=== PATIENT | male | born 1970 | race Caucasian/White ===

== ENCOUNTER → 2018-03-04 06:50 | Outpatient (CLI) | payer OTHER, SELFPAY ==
--- NOTE | 2018-03-04 07:00 | RAD_ITS ---
STUDY: X-RAY - ORBITS REASON FOR EXAM: Male, 47 years old. This study is being performed as a clearance examination for exclusion of orbital metal, prior to the performance of an MRI examination. TECHNIQUE: view(s) of the orbits were obtained. COMPARISON: None. FINDINGS: There are tiny metallic densities project over the lateral upper margin of the right maxillary sinus and over the left orbital rim. RAD/Orbits for Foreign Body IMPRESSION: 2 small metallic densities are seen projecting over the right upper lateral margin of the maxilla and in the left orbital rim Electronically Signed: Augustin Pavon, at 7:41 EDT Tel , Service support ,
--- NOTE | 2018-03-04 07:22 | MRI_ITS ---
STUDY: MRI LUMBAR SPINE WITHOUT CONTRAST REASON FOR EXAM: Male, 47 years old. low back pain RADIATES DOWN L LEG X SEVERAL WEEKS. TECHNIQUE: Standardized fat and water weighted pulse sequences were obtained in the sagittal and axial planes. COMPARISON: None FINDINGS: T12-L1: There is moderate disc space narrowing and endplate spondylosis. There is no significant disc herniation, spinal canal or foramina stenosis. Normal lumbar lordosis. There is no substantial scoliosis. Normal conus medullaris that terminates at the T12 L1-2: There is minimal disc space narrowing and endplate spondylosis. There is a minimal disc bulge and facet arthropathy without significant central canal or foraminal stenosis. L2-3: There is mild disc space narrowing and endplate spondylosis. There is a mild disc bulge and facet atrophy with mild central canal and mild bilateral foraminal stenosis. L3-4: There is a moderate disc space narrowing and endplate spondylosis. There is a moderate disc bulge and facet arthropathy with moderate central canal stenosis. There is moderate bilateral foraminal stenosis. L4-5: There is moderate disc space narrowing and endplate spondylosis. There is a minimal disc bulge and facet arthropathy without significant central canal stenosis. There is mild bilateral foraminal stenosis. L5-S1: There is minimal disc space narrowing and endplate spondylosis. There is a small central protrusion without significant central canal or foraminal stenosis. Normal visualized sacral ala. Normal visualized paraspinous soft tissue structures. MRI/Spine Lumbar (Routine) IMPRESSION: L3/L4: Moderate central canal stenosis. Moderate bilateral foraminal stenosis. Electronically Signed: Logan Garcia MD at 14:34 EDT Tel , Service support ,
== END ==
PROVIDERS: Family Provider Family Medicine; PCP Family Medicine; Visit Provider Family Medicine
DX: M54.40 Lumbago with sciatica, unspecified side (principal)
CPT/HCPCS: 70030; 72148

== ENCOUNTER 2021-11-17 16:10 | Outpatient (CLI) | payer OTHER, SELFPAY ==
--- NOTE | 2021-11-17 16:14 | MRI_ITS ---
History: WORSENING RT LEG PAIN,BACK PAIN,RARICULOPATHY,STENOSISprev lumbar surgery3 years ago Technique: T1 and T2 MR imaging of the lumbar spine performed without contrast enhancement in axial and sagittal planes. Comparison: March 04, 2018 Findings: Patient has had interval L4 and L5 laminotomy. Alignment of the lumbar vertebral bodies is normal. No change in the superior endplate deformity of L1. Multilevel disc space narrowing most prominent at L2-3, L3-4 and L4-5. Modic type I endplate changes noted at the L3-4 level. Conus medullaris and cauda equina are normal. Paraspinal soft tissues are normal. L1-2: Facet arthropathy present. No disc protrusion. Normal caliber spinal canal and neural foramina. L2-3: Disc bulging, facet arthropathy and posterior ligamentous redundancy results in mild narrowing of the spinal canal and mild to moderate narrowing of the neural foramina. L3-4: Broad-based disc protrusion, facet arthropathy and ligamentous approach if he results in mild spinal stenosis and moderate to moderate narrowing of the neuroforamina. L4-5: Mild lateral disc bulging and facet arthropathy results in moderate right and mild left neural foraminal narrowing. No spinal stenosis. L5-S1: No disc protrusion. Normal caliber spinal canal and neural foramina. IMPRESSION: Mild narrowing of the spinal canal at L2-3 and L3-4. Multilevel neural foraminal narrowing as described. at 1100 Reported and signed by: Partha Donohue MD Electronically Signed: Partha Donohue MD at 10:59 EDT , MRI/Spine Lumbar (Routine)
== END 2021-11-17 23:59 | disposition home or self-care (01) ==
PROVIDERS: PCP Family Medicine; Visit Provider Family Medicine
DX: M48.061 Spinal stenosis, lumbar region without neurogenic claudication (principal); M54.16 Radiculopathy, lumbar region; G89.29 Other chronic pain
CPT/HCPCS: 72148